=== PATIENT | female | born 1985 | race Caucasian/White ===

== ENCOUNTER 2017-10-20 15:16 | Outpatient (CLI) | payer OTHER ==
[2017-10-20] MEDS ORDERED: IOPAMIDOL-300 50 ML VIAL ONE (15:26)
[2017-10-20] MEDS ORDERED: IOPAMIDOL-300 100 ML VIAL ONE (15:26)
--- NOTE | 2017-10-20 17:12 | CT Report ---
Reason: MESH EVAL, ABD WOUND, PELVIC WOUND Procedure Date: 10/20/2017 Accession Number: [id number] / [id number] Procedure: CT - Abdomen/Pelvis W/ CPT Code: FULL RESULT: EXAM: CT ABDOMEN AND PELVIS EXAM DATE: 10/20/2017 04:42 PM. CLINICAL HISTORY: MESH EVAL, ABD WOUND, PELVIC WOUND. COMPARISONS: None. TECHNIQUE: Routine helical CT imaging was performed through the abdomen and pelvis. IV contrast: ISOVUE 300 100mL. Enteric contrast: Yes. Reconstructions: Coronal and sagittal. In accordance with CT protocol optimization, one or more of the following dose reduction techniques were utilized for this exam: automated exposure control, adjustment of mA and/or KV based on patient size, or use of iterative reconstructive technique. FINDINGS: Lung Bases: Unremarkable. Liver: There is a heterogeneous density lesion in the right lobe of the liver measuring 1.2 cm in diameter. There is a low-density lesion in the left lobe measuring 0.9 cm in diameter favoring cyst. There are other small subcentimeter liver lesions which are too small to characterize. Gallbladder/Bile Ducts: Unremarkable. Spleen: Normal. Pancreas: Normal. Adrenal Glands: Normal. Kidneys: Normal. No masses or hydronephrosis. Peritoneal Cavity/Bowel: There is oral contrast within the stomach, small bowel, and colon. There is no transition zone or mechanical bowel obstruction. There is no free air. There are findings of diastases of the rectus sheath. There is mesh in the anterior abdomen along the midline. No focal defect is seen within the mesh. No fluid collection is seen adjacent to the mesh. Pelvic Organs: The urinary bladder appears unremarkable. The uterus is anteverted. There is an IUD located centrally within the uterus. Vasculature: Abdominal aorta is normal in caliber. Bones: No significant abnormality. Other: None. IMPRESSION: 1. No abscess or other abnormal fluid collection. 2. Mesh in the anterior abdomen at midline without mesh defect or adjacent fluid collection. 3. Multiple small lesions within the liver. One of the lesions appears to be a cyst in the other is indeterminant, most likely a hemangioma. The smaller lesions are too small to characterize. RADIA
[2017-10-20] MEDS ORDERED: IOPAMIDOL-300 100 ML VIAL IVP ONE (19:13)
[2017-10-20] MEDS ORDERED: IOPAMIDOL-300 50 ML VIAL PO ONE (19:16)
== END 2017-10-20 15:17 | disposition home or self-care (01) ==
LOC: DI 15:16
PROVIDERS: ATTEND Surgery
DX: S31.609A Unspecified open wound of abdominal wall, unspecified quadrant with penetration into peritoneal cavity, initial encounter (principal); S31.000A Unspecified open wound of lower back and pelvis without penetration into retroperitoneum, initial encounter; K76.9 Liver disease, unspecified
CPT/HCPCS: 74177; Q9967

== ENCOUNTER 2019-03-27 09:03 | Outpatient (CLI) | payer BC ==
[2019-03-27 09:33] LABS: BASOPHILS # (AUTO) 0.1 10^3/uL (0.0-0.1); BASOPHILS % (AUTO) 0.6 %; EOSINOPHILS # (AUTO) 0.2 10^3/uL (0.0-0.7); HGB - HEMOGLOBIN 13.6 g/dL (12.0-16.0); LYMPHOCYTES # (AUTO) 3.1 10^3/uL (1.5-3.5); LYMPHOCYTES % (AUTO) 36.3 %; MEAN CORPUSCULAR HEMOGLOBIN 32.1 pg (27.0-31.0); MEAN CORPUSCULAR HGB CONC 32.8 g/dL (32.0-36.0); MEAN CORPUSCULAR VOLUME 97.9 fL (81.0-99.0); MEAN PLATELET VOLUME 8.6 fL (7.9-10.8); MONOCYTES # (AUTO) 0.5 10^3/uL (0.0-1.0); MONOCYTES % (AUTO) 6.4 %; NEUTROPHILS # (AUTO) 4.6 10^3/uL (1.5-6.6); NEUTROPHILS % (AUTO) 54.3 %; PLT - PLATELET COUNT 312 10^3/uL (130-450); RED BLOOD COUNT 4.24 10^6/uL (4.20-5.40); RED CELL DISTRIBUTION WIDTH 12.1 % (12.0-15.0); WHITE BLOOD COUNT 8.4 x10^3/uL (4.8-10.8)
[2019-03-27 09:55] LABS: ALBUMIN 4.6 g/dL (3.2-5.5); ALBUMIN/GLOBULIN RATIO 1.5 (1.0-2.2); ALKALINE PHOSPHATASE 34 IU/L (42-121); ALT ALANINE AMINOTRANSFERASE 16 IU/L (10-60); AST ASPARTATE AMINOTRANSFERASE 17 IU/L (10-42); BILIRUBIN,TOTAL 0.7 mg/dL (0.2-1.0); BUN - BLOOD UREA NITROGEN 11 mg/dL (6-20); CALCIUM 9.1 mg/dL (8.5-10.3); CARBON DIOXIDE - CO2 25 mmol/L (21-32); CHLORIDE 102 mmol/L (101-111); CHOL/HDL RATIO 2.5 (<4.4); CHOLESTEROL 191 mg/dL; CREATININE 0.6 mg/dL (0.4-1.0); GFR - MDRD 114 (>89); GLUCOSE 98 mg/dL (70-100); HDL CHOLESTEROL 77 mg/dL; LDL CHOLESTEROL,CALCULATED 106 mg/dL; LDL/HDL RATIO 1.4 (<4.4); SODIUM 138 mmol/L (135-145); TOTAL PROTEIN 7.6 g/dL (6.7-8.2); VLDL CHOLESTEROL 8 mg/dL
== END 2019-03-27 09:04 | disposition home or self-care (01) ==
LOC: LAB 09:03
PROVIDERS: ATTEND Family Medicine
DX: Z13.0 Encounter for screening for diseases of the blood and blood-forming organs and certain disorders involving the immune mechanism (principal); R53.83 Other fatigue; Z13.1 Encounter for screening for diabetes mellitus; Z13.220 Encounter for screening for lipoid disorders
CPT/HCPCS: 36415; 80053; 80061; 83721; 84443; 85025

== ENCOUNTER 2019-10-22 15:36 | Outpatient (CLI) | payer BC ==
--- NOTE | 2019-10-22 16:30 | XRAY Report ---
PROCEDURE: Hand 3 View BILAT INDICATIONS: Injury to the left fourth finger, injury to the right fifth finger TECHNIQUE: Two 3 views of the hand(s) acquired. COMPARISON: None FINDINGS: Bones: Obliquely oriented fracture of the left fourth middle phalanx which extends to the periarticul ar surface near the metaphysis but does not appear to extend into the joint space. Mild fracture frag ment displacement. Nondisplaced fracture of the right fifth phalanx through the the base of the tuft. Soft tissues: No suspicious soft tissue calcifications. IMPRESSION: Obliquely oriented mildly displaced fracture of the left fifth middle phalanx without intra-articular extension. Nondisplaced fracture the right fifth distal phalanx through the base of the tuft. Reviewed by: Yoel Hernandez MD on 10/22/2019 4:28 PM PDT Approved by: Yoel Hernandez MD on 10/22/2019 4:28 PM PDT Station ID: [id number]
== END 2019-10-22 15:37 | disposition home or self-care (01) ==
LOC: DI 15:36
PROVIDERS: ATTEND Family Medicine
DX: S62.666A Nondisplaced fracture of distal phalanx of right little finger, initial encounter for closed fracture (principal); S62.625A Displaced fracture of middle phalanx of left ring finger, initial encounter for closed fracture